=== PATIENT | male | born 1945 | race Caucasian/White ===

== ENCOUNTER 2018-02-16 11:16 | Inpatient (IN) | payer MEDICARE ==
[~2018-02-16] VITALS: Ht 182.9 cm; Wt 107.8 kg
[2018-02-16] MEDS ORDERED: TRAM50TA2 PO (11:42)
[2018-02-16] MEDS ORDERED: TIZA4TAB PO (11:42)
[2018-02-16] MEDS ORDERED: SODIUM CHLORIDE FLUSH 10ML SYR IVF ONE (12:00)
[2018-02-16 12:14] LABS: BASOPHILS # (AUTO) 0.04 x10^3/uL (0-0.1); BASOPHILS % (AUTO) 1 % (0-1); EOSINOPHILS % (AUTO) 2 % (1-7); LYMPHOCYTES % (AUTO) 30 % (22-44); MD NO; MEAN CORPUSCULAR HGB CONC 32.3 g/dL (33.2-36.2); MEAN PLATELET VOLUME 9.8 fL (7.4-10.4); MONOCYTES % (AUTO) 7 % (2-9); NEUTROPHILS # (AUTO) 4.91 x10^3/uL (1.8-6.8); NEUTROPHILS % (AUTO) 60 % (42-75); PLATELET COUNT 194 x10^3/uL (130-400); RED BLOOD COUNT 5.85 x10^6/uL (4.38-5.82); RED CELL DISTRIBUTION WIDTH 15.4 % (9.4-14.8)
[2018-02-16 12:19] LABS: INTERNATIONAL NORMALIZED RATIO 1.35 (0.93-1.1); PROTHROMBIN TIME 13.8 Seconds (9.6-11.5)
[2018-02-16 12:25] LABS: CHLORIDE 87 mmol/L (98-107)
[2018-02-16 12:26] LABS: ALBUMIN 3.7 g/dL (3.4-5.0); ANION GAP 14 mmol/L (5-15); CALCIUM 9.5 mg/dL (8.5-10.1)
[2018-02-16 12:34] LABS: ALKALINE PHOSPHATASE 141 U/L (45-117); CREATININE 1.77 mg/dL (0.7-1.3); TOTAL PROTEIN 9.2 g/dL (6.4-8.2)
[2018-02-16 12:41] LABS: ALANINE AMINOTRANSFERASE 37 U/L (12-78); BILIRUBIN,TOTAL 1.3 mg/dL (0.2-1.0)
[2018-02-16] MEDS ORDERED: NS + 40MEQ KCL 1,000 ML IV SCH (13:00)
[2018-02-16] MEDS ORDERED: LABETALOL 5MG/ML, 20ML IVPush PRN (13:30)
[2018-02-16] MEDS ORDERED: DOCUSATE 100 MG CAPSULE PO PRN (13:30)
[2018-02-16] MEDS ORDERED: BISACODYL 10 MG SUPP PR PRN (13:30)
[2018-02-16] MEDS ORDERED: ONDANSETRON ODT 4 MG PO PRN (13:30)
[2018-02-16] MEDS ORDERED: ONDANSETRON 2MG/ML, 2ML IVPush PRN (13:30)
[2018-02-16] MEDS ORDERED: HEPARIN 5,000 UNITS/ML, 1ML SQ SCH (13:30)
[2018-02-16] MEDS ORDERED: POLYETHYLENE GLYCOL 17 GM PACKET PO PRN (13:30)
[2018-02-16] MEDS ORDERED: hydrALAzine 20 MG/ML, 1ML IVPush PRN (13:30)
[2018-02-16] MEDS ORDERED: NS + 40MEQ KCL 1,000 ML IV ONE (13:46)
[2018-02-16] MEDS ORDERED: INSULIN (14:07)
[2018-02-16] MEDS ORDERED: LASIX (14:07)
[2018-02-16] MEDS ORDERED: HUMALOG (14:09)
[2018-02-16] MEDS ORDERED: ELIQUIS (14:10)
[2018-02-16] MEDS ORDERED: HEPARIN 5,000 UNITS/ML, 1ML ONE (14:12)
[2018-02-16 14:43] VITALS: BP 153/95
[2018-02-16] MEDS ORDERED: PLEASE ENTER ALLERGIES MC SCH (15:00)
[2018-02-16] MEDS ORDERED: [UNRECOGNIZED DRUG - REMARK] MC SCH (15:00)
[2018-02-16] MEDS ORDERED: INSU100I28 SQ-INSULIN (18:32)
[2018-02-16] MEDS ORDERED: EZET10TA18 PO (18:32)
[2018-02-16] MEDS ORDERED: APIX5TAB PO (18:32)
[2018-02-16] MEDS ORDERED: METO200T47 PO (18:32)
[2018-02-16 19:15] VITALS: BP 145/92
[2018-02-16] MEDS ORDERED: OXYcodone/APAP 5/325MG TABLET PO PRN (19:30)
[2018-02-16 20:19] LABS: MICROSCOPIC INDICATED
[2018-02-16] MEDS ORDERED: GLUCAGON 1 MG IM PRN (20:30)
[2018-02-16] MEDS ORDERED: DEXTROSE 4 GM TAB.CHEW PO PRN (20:30)
[2018-02-16 20:32] LABS: CULTURE INDICATED? NO
[2018-02-16 21:08] LABS: HEMOGLOBIN A1C 7.8 % (4.2-6.3)
[2018-02-16] MEDS: SODIUM CHLORIDE FLUSH 10ML SYR IVF SCH (21:48)
[2018-02-16] MEDS: APIXABAN 5 MG TABLET PO SCH (21:48)
[2018-02-16] MEDS: TIZANIDINE 4MG TABLET PO SCH (21:48)
[2018-02-16] MEDS: INSULIN LISPRO 100 UNITS/ML, PEN SQ-INSULIN SCH (22:29)
[2018-02-17] VITALS (9 sets, daily range): BP systolic 88–121; BP diastolic 49–78
[2018-02-17 05:10] LABS: BASOPHILS # (AUTO) 0.03 x10^3/uL (0-0.1); BASOPHILS % (AUTO) 0 % (0-1); EOSINOPHILS % (AUTO) 3 % (1-7); LYMPHOCYTES % (AUTO) 29 % (22-44); MD NO; MEAN CORPUSCULAR HGB CONC 33.4 g/dL (33.2-36.2); MEAN CORPUSCULAR VOLUME 98.7 fL (81-97); MEAN PLATELET VOLUME 9.6 fL (7.4-10.4); MONOCYTES % (AUTO) 9 % (2-9); NEUTROPHILS # (AUTO) 4.12 x10^3/uL (1.8-6.8); NEUTROPHILS % (AUTO) 59 % (42-75); PLATELET COUNT 155 x10^3/uL (130-400); RED BLOOD COUNT 4.79 x10^6/uL (4.38-5.82); RED CELL DISTRIBUTION WIDTH 15.1 % (9.4-14.8)
[2018-02-17 05:18] LABS: CALCIUM 8.7 mg/dL (8.5-10.1); CHLORIDE 92 mmol/L (98-107)
[2018-02-17 05:23] LABS: ALANINE AMINOTRANSFERASE 38 U/L (12-78); ALKALINE PHOSPHATASE 107 U/L (45-117); ANION GAP 9 mmol/L (5-15); BILIRUBIN,TOTAL 0.9 mg/dL (0.2-1.0); CREATININE 1.88 mg/dL (0.7-1.3); TOTAL PROTEIN 7.4 g/dL (6.4-8.2)
[2018-02-17] MEDS: INSULIN LISPRO 100 UNITS/ML, PEN SQ-INSULIN SCH ×4 (07:00→21:05)
[2018-02-17] MEDS ORDERED: NS + 40MEQ KCL 1,000 ML IV ONE (07:00)
[2018-02-17] MEDS: SODIUM CHLORIDE FLUSH 10ML SYR IVF SCH ×2 (07:57→21:06)
[2018-02-17] MEDS: METOPROLOL SUCCINATE 100 MG TAB.ER.24H PO SCH (09:41)
[2018-02-17] MEDS: TIZANIDINE 4MG TABLET PO SCH ×3 (09:42→21:05)
[2018-02-17] MEDS: APIXABAN 5 MG TABLET PO SCH ×2 (09:42→21:05)
[2018-02-17] MEDS: EZETIMIBE 10 MG TABLET PO SCH (09:42)
[2018-02-17] MEDS ORDERED: EMPA10TA PO (11:08)
[2018-02-17] MEDS ORDERED: PARI1CAP3 PO (11:08)
[2018-02-17] MEDS ORDERED: SITA100T PO (11:08)
[2018-02-18 03:35] VITALS: BP 95/65
[2018-02-18 05:45] LABS: CHLORIDE 93 mmol/L (98-107)
[2018-02-18 05:50] LABS: ANION GAP 9 mmol/L (5-15); CALCIUM 8.5 mg/dL (8.5-10.1)
[2018-02-18 06:34] VITALS: BP 128/77
[2018-02-18] MEDS: METOPROLOL SUCCINATE 100 MG TAB.ER.24H PO SCH (07:47)
[2018-02-18] MEDS: INSULIN LISPRO 100 UNITS/ML, PEN SQ-INSULIN SCH ×4 (07:55→21:36)
[2018-02-18] MEDS: TIZANIDINE 4MG TABLET PO SCH ×3 (08:10→21:35)
[2018-02-18] MEDS: EZETIMIBE 10 MG TABLET PO SCH (08:10)
[2018-02-18] MEDS: APIXABAN 5 MG TABLET PO SCH ×2 (08:10→21:35)
[2018-02-18] MEDS: SODIUM CHLORIDE FLUSH 10ML SYR IVF SCH ×2 (08:11→21:37)
[2018-02-18] MEDS ORDERED: NS + 40MEQ KCL 1,000 ML IV ONE ×2 (08:30→17:00)
[2018-02-18] MEDS ORDERED: SODIUM PHOSPHATE 10 MMOL in SODIUM CHLORIDE 0.9% 500 ML IV ONE (08:30)
[2018-02-18] MEDS ORDERED: POTASSIUM CHLORIDE 40 MEQ in SODIUM CHLORIDE 0.9% 500 ML IV ONE (08:30)
[2018-02-18 09:42] LABS: CREATININE,URINE RANDOM 91.7 mg/dL
[2018-02-18 12:32] VITALS: BP 123/69
[2018-02-18 14:40] LABS: ANION GAP 11 mmol/L (5-15); CALCIUM 8.4 mg/dL (8.5-10.1); CHLORIDE 94 mmol/L (98-107)
[2018-02-18 20:37] VITALS: BP 136/72
[2018-02-18] MEDS: INSULIN GLARGINE 100 UNITS/ML, PEN SQ-INSULIN SCH (21:36)
[2018-02-19] VITALS (7 sets, daily range): BP systolic 99–170; BP diastolic 63–94
[2018-02-19 05:27] LABS: ALBUMIN 2.8 g/dL (3.4-5.0); ANION GAP 7 mmol/L (5-15); CHLORIDE 102 mmol/L (98-107)
[2018-02-19] MEDS: INSULIN LISPRO 100 UNITS/ML, PEN SQ-INSULIN SCH ×4 (08:12→20:28)
[2018-02-19] MEDS ORDERED: METOPROLOL SUCCINATE 100 MG TAB.ER.24H PO SCH (09:00)
[2018-02-19] MEDS: SODIUM CHLORIDE FLUSH 10ML SYR IVF SCH ×2 (09:00→20:27)
[2018-02-19] MEDS: APIXABAN 5 MG TABLET PO SCH ×2 (09:13→20:27)
[2018-02-19] MEDS: TIZANIDINE 4MG TABLET PO SCH ×3 (09:13→20:27)
[2018-02-19] MEDS: LISINOPRIL 10 MG TABLET PO SCH (09:14)
[2018-02-19] MEDS: EZETIMIBE 10 MG TABLET PO SCH (09:14)
[2018-02-19] MEDS: INSULIN GLARGINE 100 UNITS/ML, PEN SQ-INSULIN SCH ×2 (09:17→20:28)
[2018-02-20 00:06] VITALS: BP 149/66
[2018-02-20] MEDS: INSULIN LISPRO 100 UNITS/ML, PEN SQ-INSULIN SCH ×4 (07:00→20:06)
[2018-02-20 07:17] VITALS: BP 152/79
[2018-02-20 07:18] VITALS: BP_SYST 130; BP_SYST 143; BP_DIAS 76
[2018-02-20] MEDS: EZETIMIBE 10 MG TABLET PO SCH (08:32)
[2018-02-20] MEDS: SODIUM CHLORIDE FLUSH 10ML SYR IVF SCH ×2 (08:33→20:06)
[2018-02-20] MEDS: TIZANIDINE 4MG TABLET PO SCH ×3 (08:33→20:06)
[2018-02-20] MEDS: APIXABAN 5 MG TABLET PO SCH ×2 (08:33→20:06)
[2018-02-20] MEDS: LISINOPRIL 10 MG TABLET PO SCH (08:33)
[2018-02-20] MEDS: INSULIN GLARGINE 100 UNITS/ML, PEN SQ-INSULIN SCH ×2 (09:23→20:07)
[2018-02-20 13:23] VITALS: BP_SYST 110; BP_SYST 111; BP_SYST 114; BP_DIAS 66; BP_DIAS 73; BP_DIAS 74
[2018-02-20 19:39] VITALS: BP_SYST 125; BP_SYST 131; BP_SYST 93; BP_DIAS 31; BP_DIAS 70; BP_DIAS 76
[2018-02-21 02:00] VITALS: BP 146/80
[2018-02-21 05:51] LABS: CHLORIDE 101 mmol/L (98-107)
[2018-02-21 05:56] LABS: ANION GAP 10 mmol/L (5-15); CALCIUM 8.2 mg/dL (8.5-10.1); CREATININE 1.04 mg/dL (0.7-1.3)
[2018-02-21] MEDS: INSULIN LISPRO 100 UNITS/ML, PEN SQ-INSULIN SCH ×2 (07:00→11:50)
[2018-02-21 07:09] VITALS: BP 163/76
[2018-02-21 07:12] VITALS: BP 148/87
[2018-02-21 07:20] VITALS: BP 141/82
[2018-02-21] MEDS: LISINOPRIL 10 MG TABLET PO SCH (08:25)
[2018-02-21] MEDS: TIZANIDINE 4MG TABLET PO SCH (08:25)
[2018-02-21] MEDS: INSULIN GLARGINE 100 UNITS/ML, PEN SQ-INSULIN SCH (08:25)
[2018-02-21] MEDS: EZETIMIBE 10 MG TABLET PO SCH (08:25)
[2018-02-21] MEDS: APIXABAN 5 MG TABLET PO SCH (08:25)
[2018-02-21] MEDS: SODIUM CHLORIDE FLUSH 10ML SYR IVF SCH (08:26)
[2018-02-21] MEDS ORDERED: POLY17PO5 PO (13:25)
[2018-02-21] MEDS ORDERED: LISI-167 PO (13:25)
[2018-02-21] MEDS ORDERED: DOCU-131 PO (13:25)
[2018-02-21] MEDS ORDERED: INSU100I11 SQ-INSULIN (13:25)
[2018-02-21] MEDS ORDERED: ONDA4TAB13 PO (13:25)
[2018-02-21] MEDS ORDERED: BISA10SU65 PR (13:25)
[2018-02-21] MEDS ORDERED: INSU100I13 SQ-INSULIN (13:25)
[2018-02-21 14:31] VITALS: BP 134/82
== END 2018-02-21 16:42 | DRG 640 ==
LOC: ED 12:56 → EDIP 13:14 → 4EST 14:24
PROVIDERS: ADMIT Internal Medicine; ATTEND Internal Medicine
DX: E87.6 Hypokalemia (principal); N17.0 Acute kidney failure with tubular necrosis; R17 Unspecified jaundice; D68.69 Other thrombophilia; E87.1 Hypo-osmolality and hyponatremia; M54.2 Cervicalgia; R62.7 Adult failure to thrive; I48.2 Chronic atrial fibrillation; N18.9 Chronic kidney disease, unspecified; E11.22 Type 2 diabetes mellitus with diabetic chronic kidney disease; G89.29 Other chronic pain; I12.9 Hypertensive chronic kidney disease with stage 1 through stage 4 chronic kidney disease, or unspecified chronic kidney disease; I49.5 Sick sinus syndrome; I77.1 Stricture of artery; I87.8 Other specified disorders of veins; N28.1 Cyst of kidney, acquired; D75.1 Secondary polycythemia; N40.0 Benign prostatic hyperplasia without lower urinary tract symptoms; R29.6 Repeated falls; S80.211A Abrasion, right knee, initial encounter; Z98.1 Arthrodesis status; Z79.01 Long term (current) use of anticoagulants; Z79.4 Long term (current) use of insulin; Z88.8 Allergy status to other drugs, medicaments and biological substances; Z87.891 Personal history of nicotine dependence
CPT/HCPCS: 36415; 71045; 72050; 76706; 76770; 80048; 80053; 80069; 81001; 82436; 82570; 82962; 83036; 83735; 83880; 83935; 84133; 84156; 84300; 84443; 84550; 85014; 85018; 85025; 85610; 85730; 93005; 93922; 93970; 99285; J1644; J3480; J1815; J7040

== ENCOUNTER → 2018-12-30 | Outpatient (CLI) | payer MEDICARE ==
[~2018-12-30] MED LIST: APIX5TAB PO; BISA10SU65 PR; DOCU-131 PO; ELIQUIS; EMPA10TA PO; EZET10TA18 PO; HUMALOG; INSU100I11 SQ-INSULIN; INSU100I13 SQ-INSULIN; INSU100I28 SQ-INSULIN; INSULIN; LASIX; LISI-167 PO; METO200T47 PO; ONDA4TAB13 PO; PARI1CAP3 PO; POLY17PO5 PO; SITA100T PO; TIZA4TAB PO; TRAM50TA2 PO
== END | disposition home or self-care (01) ==
LOC: CFH 12:55
PROVIDERS: ATTEND Physician Assistant Medical
DX: S22.000G Wedge compression fracture of unspecified thoracic vertebra, subsequent encounter for fracture with delayed healing (principal); M81.0 Age-related osteoporosis without current pathological fracture; X58.XXXD Exposure to other specified factors, subsequent encounter
CPT/HCPCS: 77080